=== PATIENT | male | born 1960 ===

== ENCOUNTER 2025-08-05 15:53 | Emergency (ER) | payer OTHER ==
[~2025-08-05] VITALS: Ht 172.7 cm; Wt 108.9 kg
[2025-08-05 16:00] VITALS: BP 104/66
[2025-08-05 16:50] LABS: PLATELET COUNT (AUTO) 311 K/uL (152-348); RED BLOOD CELL COUNT(AUTO) 5.69 MIL/uL (4.06-5.63); RED CELL DISTRIBUTION WIDTH 13.9 % (12.1-16.2); WHITE BLOOD COUNT (AUTO) 7.5 K/uL (3.6-10.2)
[2025-08-05 16:56] LABS: CREATININE 1.4 mg/dL (0.6-1.3); SODIUM SERUM 134 mmol/L (136-145); UREA NITROGEN, BLOOD 23 mg/dL (7-18)
[2025-08-05 17:01] LABS: ASPARTATE AMINOTRANSFERASE 21 U/L (15-37); TOTAL PROTEIN, SERUM 8.7 g/dL (6.4-8.2)
[2025-08-05] MEDS ORDERED: NEBI10TA PO (17:06)
[2025-08-05] MEDS ORDERED: SEMA0.257 SQ (17:06)
[2025-08-05] MEDS ORDERED: AMLO10TA59 PO (17:06)
[2025-08-05] MEDS ORDERED: SIMV-46 PO (17:06)
[2025-08-05] MEDS ORDERED: EMPA10TA PO (17:06)
[2025-08-05] MEDS ORDERED: GABA300T28 PO (17:06)
[2025-08-05] MEDS ORDERED: TAMS0.4C PO (17:06)
[2025-08-05] MEDS ORDERED: METF-442 PO (17:06)
[2025-08-05] MEDS ORDERED: LISI20TA30 PO (17:06)
[2025-08-05] MEDS: IV NORMAL SALINE 1000 ML BAG IV ONE (17:48)
[2025-08-05 17:54] LABS: *BILIRUBIN,URIN 2+ (NEGATIVE); *BLOOD, URINE NEGATIVE (NEGATIVE); *CLARITY,URINE SLIGHTLY CLOUDY (CLEAR); *COLOR,URINE RED (YELLOW); *KETONES,URINE 1+ (NEGATIVE); *PROTEIN,URINE 3+ (NEGATIVE); *UROBILINOGEN,URINE 8.0 E.U./dl (NORMAL); LEUKOCYTE ESTERASE ,URINE 3+ (NEGATIVE); NITRITE, URINE POSITIVE (NEGATIVE); UGLUCOSE 3+ (NEGATIVE)
[2025-08-05 18:07] LABS: SQUAMOUS EPITHELIAL CELL,UR MANY /HPF (NONE SEEN)
[2025-08-05] MEDS ORDERED: LEVO-43 PO (18:32)
[2025-08-05] MEDS ORDERED: RABE20TA33 PO (18:32)
[2025-08-05] MEDS ORDERED: METO-295 PO (18:32)
[2025-08-05 18:49] VITALS: BP 116/72; TEMP 98.1; O2SAT 97
== END 2025-08-05 18:49 | disposition home or self-care (01) ==
LOC: ER 15:53
DX: N39.0 Urinary tract infection, site not specified (principal); N32.89 Other specified disorders of bladder; I10 Essential (primary) hypertension; E11.9 Type 2 diabetes mellitus without complications; E78.5 Hyperlipidemia, unspecified; F17.210 Nicotine dependence, cigarettes, uncomplicated; K43.9 Ventral hernia without obstruction or gangrene; Z79.84 Long term (current) use of oral hypoglycemic drugs; Z79.899 Other long term (current) drug therapy
CPT/HCPCS: 99285; 74176; 96360; 71045; 80076; 80048; 81001; 83690; 85025; 87086; 84484; 36415; 93005; J7040; A4606; A4663